=== PATIENT | female | born 2000 | race Two or more races ===

== ENCOUNTER 2018-09-21 02:47 | Emergency (ER) | payer SELFPAY ==
[2018-09-21] MEDS ORDERED: PREDNISONE 20 MG TABLET PO ONE (05:31)
[2018-09-21] MEDS ORDERED: PSEUDOEPHEDRINE HCL 30 MG TABLET PO ONE (05:41)
[2018-09-21 06:00] VITALS: BP 131/86
--- NOTE | 2018-09-21 07:06 | ER Document Report ---
Entered by JENNIFER LI SCRIBE 09/21/18 0532 Acting as scribe for:HOMAR GALVAN MD ED ENT - General Chief Complaint: Ear Pain Stated Complaint: EAR PAIN Time Seen by Provider: 09/21/18 05:17 Mode of Arrival: Ambulatory Information source: Patient Notes: 17-year-old female who presents to the emergency department today with complaints of nasal congestion, ear pain, subjective fevers, and a cough for 1 week. Patient states she has tried [id number] [place] cold and flu along with Mucinex with minimal relief. Patient states she is bringing up clear phlegm with her cough and when she blows her nose it is yellowish green. Patient states her last menstrual period began at the end of August. TRAVEL OUTSIDE OF THE [place] IN LAST 30 DAYS: No - Related Data Allergies/Adverse Reactions: No Known Allergies Allergy (Unverified 09/21/18 02:50) Past Medical History - General Information source: Patient - Social History Smoking Status: Never Smoker Cigarette use (# per day): No Chew tobacco use (# tins/day): No Frequency of alcohol use: None Drug Abuse: None Lives with: Family Family History: Reviewed & Not Pertinent Patient has suicidal ideation: No Patient has homicidal ideation: No Surgical Hx: Negative Review of Systems - Review of Systems Constitutional: See HPI, Fever - subjective EENT: See HPI, Ear pain, Nose congestion, Sinus pressure Cardiovascular: No symptoms reported Respiratory: See HPI, Cough Gastrointestinal: No symptoms reported Genitourinary: No symptoms reported Female Genitourinary: No symptoms reported Musculoskeletal: No symptoms reported Skin: No symptoms reported Hematologic/Lymphatic: No symptoms reported Neurological/Psychological: No symptoms reported -: Yes All other systems reviewed and negative Physical Exam - Vital signs Vitals: Temp Pulse Resp BP Pulse Ox 97.7 F 96 H 18 137/85 H 96 09/21/18 02:54 09/21/18 02:54 09/21/18 02:54 09/21/18 02:54 09/21/18 02:54 - Notes Notes: Physical Exam: General: Alert, appears well. HEENT: Normocephalic. Atraumatic. PERRL. Extraocular movements intact. Oropharynx clear. TMs are retracted bilaterally. Neck: Supple. Non-tender. Respiratory: No respiratory distress. Wheezing and rhonchi with forced cough bilaterally. Cardiovascular: Regular rate and rhythm. Abdominal: Normal Inspection. Non-tender. No distension. Normal Bowel Sounds. Back: Non-tender. No deformity or step off. Extremities: Moves all four extremities. Upper extremities: Normal inspection. Normal ROM. Lower extremities: Normal inspection. No edema. Normal ROM. Neurological: Normal cognition. AAOx4. Normal speech. Psychological: Normal affect. Normal Mood. Skin: Warm. Dry. Normal color. Course - Vital Signs Vital signs: Temp Pulse Resp BP Pulse Ox 97.7 F 96 H 18 137/85 H 96 09/21/18 02:54 09/21/18 02:54 09/21/18 02:54 09/21/18 02:54 09/21/18 02:54 Discharge - Discharge Clinical Impression: Viral upper respiratory tract infection with cough, Nasal sinus congestion Eustachian tube dysfunction Qualifiers: Laterality: bilateral Qualified Code(s): H69.83 - Other specified disorders of Eustachian tube, bilateral I personally performed the services described in the documentation, reviewed and edited the documentation which was dictated to the scribe in my presence, and it accurately records my words and actions.
== END 2018-09-21 06:05 | disposition home or self-care (01) ==
LOC: ER 02:47
DX: H69.93 Unspecified Eustachian tube disorder, bilateral (principal); J06.9 Acute upper respiratory infection, unspecified; B97.89 Other viral agents as the cause of diseases classified elsewhere; R09.81 Nasal congestion; R05 Cough; H92.09 Otalgia, unspecified ear; R06.2 Wheezing
CPT/HCPCS: 99282; J7512